=== PATIENT | female | born 1960 | race African-American/Black ===

== ENCOUNTER 2019-02-11 11:46 | Inpatient (IN) | payer OTHER ==
[~2019-02-11] VITALS: Ht 160 cm; Wt 79.7 kg
[2019-02-14 07:51] VITALS: BP 115/73
== END 2019-02-14 11:54 | disposition home or self-care (01) | DRG 389 ==
LOC: ED 15:35 → EDIP 16:36 → 3NE 17:25 → DCLOUNGE 02-14 11:45
PROVIDERS: ADMIT Family Medicine; ATTEND Family Medicine
DX: K56.690 Other partial intestinal obstruction (principal); K86.2 Cyst of pancreas; K29.70 Gastritis, unspecified, without bleeding; Z87.442 Personal history of urinary calculi; K59.09 Other constipation
CPT/HCPCS: 36415; 71045; 74177; 74245; 76700; 80048; 80053; 81001; 83690; 83735; 84100; 85025; 86301; 93005; 94640; 96374; 96375; G0378; J1650; J1885; J2405; J3480; Q9967; J2270; J2765